=== PATIENT | male | born 1980 | race Caucasian/White ===

== ENCOUNTER 2018-01-13 21:19 | Emergency (ER) | payer SELFPAY ==
[2018-01-13] MEDS ORDERED: Ketorolac 60 MG/2 ML SDV IM ONE (22:00)
--- NOTE | 2018-01-13 22:05 | EDM.PDOC ---
ED HPI GENERAL MEDICAL PROBLEM - General Chief Complaint: General Stated Complaint: BACK PAIN Time Seen by Provider: 01/13/18 21:57 Source of Information: Reports: Patient History Limitations: Reports: No Limitations - History of Present Illness INITIAL COMMENTS - FREE TEXT/NARRATIVE: HISTORY AND PHYSICAL: History of present illness: Patient is a 37-year-old male here with complaint of upper back pain that he's had for 3 years but has progressively gotten worse in the last week. Patient states that he used to be in [place] and he had gotten hit once which started his neck and upper back pain. Patient states that he has a lot of knots in his back , left more than right. He states the muscles are spasming and the pain will radiated around the sides of his chest and his pecs on both sides. 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 He states he has numbness and tingling in both upper extremities and in to all fingers. He states that he will push on one of the knots and it makes him dizzy and nauseous because of the pain. He reports he has not taken anything for the pain. He denies any chest pain/pressure, SOB, diaphoresis, abdominal pain, vomiting, diarrhea, fevers, chills. Review of systems: As per history of present illness and below otherwise all systems reviewed and negative. Past medical history: As per history of present illness and as reviewed below otherwise noncontributory. Surgical history: As per history of present illness and as reviewed below otherwise noncontributory. Social history: No reported history of drug or alcohol abuse. Family history: As per history of present illness and as reviewed below otherwise noncontributory. Physical exam: General: Patient sitting comfortably in no acute distress and nontoxic appearing HEENT: Atraumatic, normocephalic, pupils reactive, negative for conjunctival pallor or scleral icterus, mucous membranes moist, throat clear, neck supple, nontender, trachea midline. No meningeal signs. Lungs: Clear to auscultation, breath sounds equal bilaterally, chest nontender. Heart: S1S2, regular, negative for clicks, rubs, or overt murmur. Abdomen: Soft, nondistended, nontender. Negative for masses or hepatosplenomegaly. Negative for costovertebral tenderness. Pelvis: Stable nontender. Genitourinary: Deferred. Rectal: Deferred. Spine: pain to palpation of left cervical and thoracic paraspinals. No cervical or thoracic spinous process tenderness. Extremities: Atraumatic, negative for cords or calf pain. Neurovascular unremarkable. Neuro: Awake, alert, oriented. Cranial nerves II through XII unremarkable. Cerebellum unremarkable. Motor and sensory unremarkable throughout. Exam nonfocal. Notes: Patient declined prescription for flexeril due to his job. Diagnostics: Declines Therapeutics: Patient declined Toradol and Norflex IM Prescriptions: Diclofenac Impression: Cervical and thoracic muscle spasm Plan: 1. Heat and gentle stretching as tolerated. Take diclofenac as discussed. 2. Follow up with primary care provider 3. Return to ED as needed as discussed Definitive disposition and diagnosis as appropriate pending reevaluation and review of above. - Related Data Allergies Allergy/AdvReac Type Severity Reaction Status Date / Time Penicillins Allergy Anaphylactic Verified 01/13/18 21:44 Shock Home Meds: Home Meds Aspirin 81 mg PO BID 01/13/18 [History] Calcium Carb/Magnesium Hydrox [Rolaids Chewable Tablet] 1 each PO BID PRN [History] Ibuprofen [Motrin] 600 mg PO Q8HR PRN 01/13/18 [History] Ondansetron [Zofran ODT] 4 mg PO Q8H 01/13/18 [History] Past Medical History Gastrointestinal History: Reports: GERD Social & Family History - Tobacco Use Smoking Status *Q: Former Smoker Used Tobacco, but Quit: Yes Month/Year Tobacco Last Used: 12/2017 ED ROS GENERAL - Review of Systems Review Of Systems: ROS reveals no pertinent complaints other than HPI. ED EXAM, GENERAL - Physical Exam Exam: See Below (see dictation) Departure - Departure Time of Disposition: 22:05 Disposition: Home, Self-Care 01 Condition: Good Clinical Impression: Cervical paraspinal muscle spasm, Spasm of thoracic back muscle - Discharge Information Referrals: PCP,None [Primary Care Provider] - Additional Instructions: The following information is given to patients seen in the emergency department who are being discharged to home. This information is to outline your options for follow-up care. We provide all patients seen in our emergency department with a follow-up referral. The need for follow-up, as well as the timing and circumstances, are variable depending upon the specifics of your emergency department visit. If you don't have a primary care physician on staff, we will provide you with a referral. We always advise you to contact your personal physician following an emergency department visit to inform them of the circumstance of the visit and for follow-up with them and/or the need for any referrals to a consulting specialist. The emergency department will also refer you to a specialist when appropriate. This referral assures that you have the opportunity for follow-up care with a specialist. All of these measure are taken in an effort to provide you with optimal care, which includes your follow-up. Under all circumstances we always encourage you to contact your private physician who remains a resource for coordinating your care. When calling for follow-up care, please make the office aware that this follow-up is from your recent emergency room visit. If for any reason you are refused follow-up, please contact the [facility] at and asked to speak to the emergency department charge nurse. [facility] [address] [place] [id number] [facility] [address] [place] [id number] 1. Heat and gentle stretching as tolerated. Take diclofenac as discussed. 2. Follow up with primary care provider 3. Return to ED as needed as discussed
== END 2018-01-13 22:15 | disposition home or self-care (01) ==
LOC: MW.ED 21:19
DX: M62.830 Muscle spasm of back (principal); Z88.0 Allergy status to penicillin; Z87.891 Personal history of nicotine dependence
CPT/HCPCS: 99283